=== PATIENT | female | born 2000 | race Caucasian/White ===

== ENCOUNTER 2024-10-10 07:46 | Emergency (ER) | payer OTHER ==
[~2024-10-10] VITALS: Ht 160 cm; Wt 66.0 kg
[2024-10-10 07:48] VITALS: O2SAT 99
[2024-10-10 09:04] LABS: BASOPHILS % 0.3 % (0.0-2.0); EOSINOPHILS % 0.9 % (0.0-5.0); HEMATOCRIT. 31.8 % (36.0-48.0); HEMOGLOBIN. 10.9 g/dL (12.0-16.0); LYMPHOCYTES % 17.2 % (20.0-50.0); MEAN CORPUSCULAR HEMOGLOBIN 31.9 pg (28.0-32.0); MEAN CORPUSCULAR HGB CONC 34.1 g/dL (31.0-37.0); MEAN CORPUSCULAR VOLUME 93.7 fL (81.0-99.0); MEAN PLATELET VOLUME 8.8 fl (7.4-10.4); MONOCYTES % 8.9 % (2.0-8.0); NEUTROPHILS % 72.7 % (40.0-76.0); PLATELET 208 x1000/uL (130-400); RED CELL DISTRIBUTION WIDTH 13.4 % (11.6-14.6); WHITE BLOOD COUNT 5.9 x1000/uL (4.5-11.0)
[2024-10-10 09:11] VITALS: BP 102/57; PULSE 78; RESP 20; TEMP 36.7; O2SAT 98
[2024-10-10 09:15] LABS: CHLORIDE 105 mEq/L (98-107); POTASSIUM 3.8 mEq/L (3.5-5.1); SODIUM 136 mEq/L (136-145)
[2024-10-10 09:16] LABS: CALCIUM 8.7 mg/dL (8.7-10.4); CARBON DIOXIDE 25 mEq/L (21-32)
[2024-10-10 09:21] LABS: CREATININE 0.6 mg/dL (0.6-1.0); GLUCOSE 77 mg/dL (70-105); UREA NITROGEN BLOOD 11 mg/dL (9-23)
[2024-10-10 09:23] LABS: ALANINE AMINOTRANSFERASE 9 IU/L (10-49); ALBUMIN 3.8 g/dL (3.2-4.8); ASPARTATE AMINOTRANSFERASE 16 IU/L (<34); BILIRUBIN TOTAL 0.4 mg/dL (0.1-1.0)
[2024-10-10 09:24] LABS: PROTEIN TOTAL 6.2 g/dL (6.0-8.3)
== END 2024-10-10 09:23 | disposition left against medical advice (07) ==
LOC: ER 07:46
DX: O46.92 Antepartum hemorrhage, unspecified, second trimester (principal); Z3A.23 23 weeks gestation of pregnancy
CPT/HCPCS: 80053; 85025; 85730; 86850; 86900; 86901; 86592; 36415; 76805; 99284; Z7610